=== PATIENT | female | born 1995 | race Caucasian/White ===

== ENCOUNTER 2017-09-26 17:26 | Emergency (ER) | payer MEDICAID ==
[2017-09-26] MEDS ORDERED: NS 2,000 ML IV ONE (17:37)
[2017-09-26] MEDS ORDERED: ONDANSETRON 4 MG/2 ML VIAL IVP ONE (17:38)
[2017-09-26 18:12] LABS: PLATELET COUNT 338 10^3/uL (150-400)
[2017-09-26] MEDS ORDERED: KETOROLAC 15 MG/1 ML SDV IVP ONE (18:41)
--- NOTE | 2017-09-26 18:59 | EDPHY ---
H & P Stated Complaint: c/o N/V/D since last night Time Seen by Provider: 09/26/17 17:37 HPI/ROS: This patient complains of vomiting and diarrhea onset late last night with frequent episodes this morning of loose watery diarrhea followed by the vomiting. She has had several episodes of vomiting today and cannot tolerate p.o. Fluid intake. She started feeling lightheaded prior to arrival while standing and her boyfriend drove her here by private vehicle for further evaluation. She reports moderate diffuse abdominal cramping periumbilical location earlier which is now diminish to 2/10 without medication. She reports that she feels dehydrated citing dry lips, lightheadedness and the frequent vomiting and diarrhea. ROS: Constitutional: No fevers or chills. She does report fatigue attributes this to decreased sleep and thinks she may have"hangover". HEENT: No URI symptoms recently. Pulmonary: No shortness of breath or cough. Cardiovascular: No chest pain. Positive lightheadedness. GI: As per HPI. No hematemesis. No coffee-ground emesis. No hematochezia or dark tarry stools. : Slight dysuria that she attributes to dehydration. No flank pain. Last menstrual period was normal timing 3 weeks ago. Integumentary: No skin rash 10 point ROS is otherwise negative Source: Patient Exam Limitations: No limitations - Personal History LMP (Females 10-55): 22-28 Days Ago Current Tetanus Diphtheria and Acellular Pertussis (TDAP): Yes - Medical/Surgical History Hx Asthma: No Hx Chronic Respiratory Disease: No Hx Diabetes: No Hx Cardiac Disease: No Hx Renal Disease: No Hx Cirrhosis: No Hx Alcoholism: No Hx HIV/AIDS: No Hx Splenectomy or Spleen Trauma: No Other PMH: denies - Family History Significant Family History: No pertinent family hx - Social History Smoking Status: Never smoked Alcohol Use: Other (Socially typically 2 times a week. She did drink 4 beers last night.) Drug Use: Marijuana (She smokes marijuana most days.) - Physical Exam Exam: General Appearance: Alert, no distress. Eyes: Pupils equal and round no pallor or injection. ENT, Mouth: Mucous membranes dry. Respiratory: There are no retractions, lungs are clear to auscultation. Cardiovascular: Regular rate and rhythm. No murmur gallop rub Gastrointestinal: Normoactive, soft, nontender, no organomegaly. Back: Mild left CVA tenderness versus muscular tenderness to the lumbar area. No right-sided tenderness Neurological: GCS 15 Skin: Warm and dry, no rashes. Musculoskeletal: Neck is supple nontender. Extremities are symmetrical, full range of motion. Psychiatric: Mood and affect normal. DIFFERENTIAL DIAGNOSIS: After history and physical exam differential diagnosis was considered for viral gastroenteritis, alcohol poisoning, dehydration, UTI, Constitutional: Initial Vital Signs Temperature (C) 36.6 C 09/26/17 17:35 Heart Rate 86 09/26/17 17:35 Respiratory Rate 18 09/26/17 17:35 Blood Pressure 133/81 H 09/26/17 17:35 O2 Sat (%) 96 09/26/17 17:35 O2 Delivery Mode Room Air Allergies/Adverse Reactions: No Known Allergies Allergy (Verified 03/28/15 18:57) Home Medications: Medication Instructions Recorded Ondansetron Odt [Zofran Odt] 4 - 8 mg PO Q4PRN PRN #4 tab 09/26/17 Medical Decision Making ED Course/Re-evaluation: IV normal saline bolus x2 L Zofran IV with resolution of nausea vomiting Toradol with improvement in mild belly cramping in aches. Studies: CBC with leukocytosis. Basic metabolic panel is normal. HCG is negative. Urinalysis is normal the exception ketones consistent with her dehydration On repeat examination after medications patient has no significant belly tenderness. Discussion: Although this patient has significant leukocytosis GI is no concerning exam findings on her belly exam currently. Differential diagnosis includes viral gastroenteritis, marijuana hyperemesis and dehydration improved with treatment. Patient will go home on Zofran, Light diet and Imodium if needed. She understands need to return should she develop worsening symptoms despite the treatment plan. - Data Points Laboratory Results: Laboratory Results 09/26/17 18:06 09/26/17 18:06 09/26/17 09/26/17 09/26/17 18:06 18:06 18:06 WBC 17.24 10^3/uL H 10^3/uL (3.80-9.50) RBC 4.67 10^6/uL 10^6/uL (4.18-5.33) Hgb 15.0 g/dL g/dL (12.6-16.3) Hct 42.9 % % (38.0-47.0) MCV 91.9 fL fL (81.5-99.8) MCH 32.1 pg pg (27.9-34.1) MCHC 35.0 g/dL g/dL (32.4-36.7) RDW 12.3 % % (11.5-15.2) Plt Count 338 10^3/uL 10^3/uL (150-400) MPV 9.5 fL fL (8.7-11.7) Neut % (Auto) 90.5 % H % (39.3-74.2) Lymph % (Auto) 5.7 % L % (15.0-45.0) [place] % (Auto) 2.6 % L % (4.5-13.0) Eos % (Auto) 0.0 % L % (0.6-7.6) Baso % (Auto) 0.5 % % (0.3-1.7) Nucleat RBC Rel Count 0.0 % % (0.0-0.2) Absolute Neuts (auto) 15.60 10^3/uL H 10^3/uL (1.70-6.50) Absolute Lymphs (auto) 0.99 10^3/uL L 10^3/uL (1.00-3.00) Absolute Monos (auto) 0.45 10^3/uL 10^3/uL (0.30-0.80) Absolute Eos (auto) 0.00 10^3/uL L 10^3/uL (0.03-0.40) Absolute Basos (auto) 0.08 10^3/uL 10^3/uL (0.02-0.10) Absolute Nucleated RBC 0.00 10^3/uL 10^3/uL (0-0.01) Immature Gran % 0.7 % % (0.0-1.1) Immature Gran # 0.12 10^3/uL H 10^3/uL (0.00-0.10) Sodium 143 mEq/L mEq/L (135-145) Potassium 4.0 mEq/L mEq/L (3.5-5.2) Chloride 102 mEq/L mEq/L (97-110) Carbon Dioxide 22 mEq/l mEq/l (22-31) Anion Gap 19 mEq/L H mEq/L (8-16) BUN 12 mg/dL mg/dL (7-23) Creatinine 0.7 mg/dL mg/dL (0.6-1.0) Estimated GFR > 60 Glucose 121 mg/dL H mg/dL (70-100) Calcium 9.9 mg/dL mg/dL (8.5-10.4) Beta HCG, Qual NEGATIVE Urine Color Urine Appearance Urine pH Ur Specific [place] Urine Protein Urine Ketones Urine Blood Urine Nitrate Urine Bilirubin Urine Urobilinogen Ur Leukocyte Esterase Urine RBC Urine WBC Ur Epithelial Cells Amorphous Sediment Urine Mucus Urine Glucose 09/26/17 18:00 WBC RBC Hgb Hct MCV MCH MCHC RDW Plt Count MPV Neut % (Auto) Lymph % (Auto) [place] % (Auto) Eos % (Auto) Baso % (Auto) Nucleat RBC Rel Count Absolute Neuts (auto) Absolute Lymphs (auto) Absolute Monos (auto) Absolute Eos (auto) Absolute Basos (auto) Absolute Nucleated RBC Immature Gran % Immature Gran # Sodium Potassium Chloride Carbon Dioxide Anion Gap BUN Creatinine Estimated GFR Glucose Calcium Beta HCG, Qual Urine Color YELLOW Urine Appearance CLOUDY Urine pH 6.0 (5.0-7.5) Ur Specific [place] >= 1.030 (1.002-1.030) Urine Protein 1+ H (NEGATIVE) Urine Ketones 1+ H (NEGATIVE) Urine Blood NEGATIVE (NEGATIVE) Urine Nitrate NEGATIVE (NEGATIVE) Urine Bilirubin NEGATIVE (NEGATIVE) Urine Urobilinogen 0.2 EU EU (0.2-1.0) Ur Leukocyte Esterase NEGATIVE (NEGATIVE) Urine RBC NONE SEEN /hpf /hpf (0-3) Urine WBC 0-1 /hpf /hpf (0-3) Ur Epithelial Cells 2+ /lpf H /lpf (NONE-1+) Amorphous Sediment 4+ /hpf H /hpf (NONE-1+) Urine Mucus 3+ /lpf H /lpf (NONE-1+) Urine Glucose NEGATIVE (NEGATIVE) Medications Given: Discontinued Medications Sodium Chloride (Ns) 2,000 mls @ 0 mls/hr IV EDNOW ONE; Wide Open PRN Reason: Protocol Stop: 09/26/17 17:38 Last Admin: 09/26/17 18:12 Dose: 2,000 mls Ketorolac Tromethamine (Toradol) 15 mg IVP EDNOW ONE Stop: 09/26/17 18:42 Last Admin: 09/26/17 18:53 Dose: 15 mg Ondansetron HCl (Zofran) 4 mg IVP EDNOW ONE Stop: 09/26/17 17:39 Last Admin: 09/26/17 18:12 Dose: 4 mg Departure - Departure Disposition: Home, Routine, Self-Care Clinical Impression: Viral gastroenteritis, Dehydration Condition: Good Instructions: Gastroenteritis (ED) Additional Instructions: Diagnosis: Gastroenteritis 2. Dehydration Plan: Home with light diet-bananas, rice, applesauce, soup and similar to feel improved Zofran under the tongue for nausea if needed Imodium for diarrhea if needed. Return for any significant worsening despite the treatment plan. Referrals: Jazmin Arevalo MD [Primary Care Provider] - As per Instructions Stand Alone Forms: Work Excuse Prescriptions: Ondansetron Odt [Zofran Odt] 4 - 8 mg PO Q4PRN PRN #4 tab PRN Reason: Vomiting
[2017-09-26 22:31] VITALS: BP 128/84
== END 2017-09-26 20:01 | disposition home or self-care (01) ==
LOC: CED 17:26
DX: A08.4 Viral intestinal infection, unspecified (principal); E86.0 Dehydration; E86.9 Volume depletion, unspecified
CPT/HCPCS: 80048-PO; 81003-PO; 81015-PO; 84703-PO; 85025-PO; 96374; J1885; J2405